=== PATIENT | male | born 1950 | race Two or more races ===

== ENCOUNTER → 2016-08-27 | Outpatient (CLI) | payer MEDICARE, BC ==
[~2016-08-27] MED LIST: ACETAMINOPHEN PO; AMARYL PO; AMARYL2 MG PO; ASPIRIN PO; AZOR; AZOR PO; BYSTOLIC10 MG PO; CLINDAMYCIN HC300 MG PO; CRESTOR PO; FERRO-TIME325 MG PO; FISH OIL 1,0001 CAP PO; HCTZ PO; IBUPROFEN PO; IRON COMBINATIONS PO; IRON INJECTION; JANUMET; JANUMET PO; LEVEMIR100 U/ML; LEVOXYL125 MCG PO; LISINOPRIL PO; LISINOPRIL-HCTZ1 T14 PO; LORTAB 7.5-5001 TAB PO; LOVAZA; LOVAZA1 G PO; LYRICA100 MG PO; MULTIPLE VITAMI1 T11 PO; NEURONTIN PO; NEXIUM PO; NIASPAN PO; NICOTINE T1 PATCH .2 TOP; NORVASC PO; OMEGA 3 FISH OI1 CAP PO; OMEPRAZOLE40 M1 PO; OMEPRAZOLE40 MG PO; PLAVIX PO; PLETAL100 MG PO; PRAVASTATIN SOD40 MG PO; PROCRIT SUBQ; SYNTHROID PO; TRAMADOL HCL50 M1 PO; VITAMIN B 12 PO; VITAMIN D-32000 UNI2 PO; WELCHOL625 MG PO; ZESTORETIC 20/11 TAB PO; ZESTRIL5 MG PO
== END | disposition home or self-care (01) ==
LOC: CSSDAY 09:00
DX: D50.0 Iron deficiency anemia secondary to blood loss (chronic) (principal); Z79.899 Other long term (current) drug therapy; Z88.8 Allergy status to other drugs, medicaments and biological substances
CPT/HCPCS: 96374; Q0138